=== PATIENT | female | born 1995 | race Caucasian/White ===

== ENCOUNTER 2017-03-30 15:05 | Observation (INO) | payer OTHER ==
[~2017-03-30] VITALS: Ht 172.7 cm; Wt 87.1 kg
[~2017-03-30 15:05] MED LIST: FAMO1TAB29 PO; PREN1TAB80 PO
[2017-03-30 15:55] VITALS: BP 114/77
== END 2017-03-30 17:50 | disposition home or self-care (01) ==
LOC: 4S 15:05
PROVIDERS: ADMIT Obstetrics & Gynecology; ATTEND Obstetrics & Gynecology
DX: O26.893 Other specified pregnancy related conditions, third trimester (principal); R10.30 Lower abdominal pain, unspecified; Z3A.37 37 weeks gestation of pregnancy
CPT/HCPCS: 59025; 76805; G0378

== ENCOUNTER 2017-04-02 15:10 | Inpatient (IN) | payer OTHER ==
[~2017-04-02] VITALS: Ht 162.6 cm; Wt 86.6 kg
[2017-04-02] MEDS ORDERED: RINGERS SOLUTION,LACTATED 1,000 ML IV PRN (15:36)
[2017-04-02 15:42] VITALS: BP 118/69
[2017-04-02] MEDS ORDERED: DINOPROSTONE 10 MG VAGINAL SUPPOSITORY VG ONE (15:45)
[2017-04-02] MEDS ORDERED: METOCLOPRAMIDE HCL 5 MG/ML 2 ML VIAL IVP PRN (15:45)
[2017-04-02] MEDS ORDERED: METHYLERGONOVINE MALEATE 0.2 MG/ML VIAL IM PRN (15:45)
[2017-04-02] MEDS ORDERED: CITRIC ACID/SODIUM CITRATE 30 ML SOLUTION UDCUP PO PRN (15:45)
[2017-04-02] MEDS ORDERED: LIDOCAINE HCL/PF 1% 30 ML VIAL INJ PRN (15:45)
[2017-04-02 16:18] LABS: BASOPHILS # (AUTO) 0.02 K/uL (0.00-0.20); BASOPHILS % (AUTO) 0.2 % (0.0-2.0); EOSINOPHILS # (AUTO) 0.11 K/uL (0.00-0.70); EOSINOPHILS % (AUTO) 0.92 % (1.0-6.0); HEMATOCRIT 27.8 % (36-46); HEMOGLOBIN 9.7 g/dL (12.0-16.0); LYMPHOCYTES # (AUTO) 1.7 K/uL (1.0-4.8); LYMPHOCYTES % (AUTO) 13.4 % (22.0-44.0); MEAN CORPUSCULAR HEMOGLOBIN 27.9 pg (26.0-34.0); MEAN CORPUSCULAR HGB CONC 34.7 G/dL (31.0-37.0); MEAN CORPUSCULAR VOLUME 80 fL (80-100); MONOCYTES # (AUTO) 0.8 K/uL (0.1-1.0); MONOCYTES % (AUTO) 6.3 % (2.0-9.0); NEUTROPHILS # (AUTO) 9.8 K/uL (1.8-7.7); NEUTROPHILS % (AUTO) 79.2 % (40.0-70.0); RED BLOOD CELL COUNT(AUTO) 3.46 MIL/uL (4.00-5.20); RED CELL DISTRIBUTION WIDTH 15.1 % (11.5-14.5); WHITE BLOOD COUNT (AUTO) 12.4 K/uL (4.5-11.0)
[2017-04-02] MEDS: RINGERS SOLUTION,LACTATED 1,000 ML IV SCH ×2 (16:39→18:41)
[2017-04-02] MEDS: ONDANSETRON HCL 4 MG/2 ML VIAL IVP PRN (19:31)
[2017-04-02] MEDS: FentaNYL CITRATE-PF 100 MCG/2 ML VIAL IVP PRN ×2 (21:16→21:22)
[2017-04-03] MEDS: FentaNYL CITRATE-PF 100 MCG/2 ML VIAL IVP PRN ×4 (00:07→12:49)
[2017-04-03] MEDS: OXYGEN THERAPY IH SCH ×2 (00:08→08:00)
[2017-04-03] MEDS: RINGERS SOLUTION,LACTATED 1,000 ML IV SCH ×3 (02:03→18:52)
[2017-04-03] MEDS ORDERED: BUTORPHANOL TARTRATE 2 MG/ML VIAL IVP ONE (02:20)
[2017-04-03] MEDS ORDERED: DINOPROSTONE 10 MG VAGINAL SUPPOSITORY VG ONE (05:15)
[2017-04-03] MEDS: ONDANSETRON HCL 4 MG/2 ML VIAL IVP PRN (07:03)
[2017-04-03] MEDS ORDERED: RINGERS SOLUTION,LACTATED 1,000 ML IV ONE (18:45)
[2017-04-03] MEDS ORDERED: OXYTOCIN 30 UNITS/LACT RINGERS 500 ML IV PRN (21:30)
[2017-04-04] MEDS: FentaNYL CITRATE-PF 100 MCG/2 ML VIAL IVP PRN (07:44)
[2017-04-04] MEDS ORDERED: HYDROmorphone 2 MG/ML SYRINGE IVP PRN (10:00)
[2017-04-04] MEDS ORDERED: MEPERIDINE-PF 25 MG/ML SYRINGE IVP PRN (10:00)
[2017-04-04] MEDS ORDERED: FentaNYL CITRATE-PF 100 MCG/2 ML VIAL IVP PRN (10:00)
[2017-04-04] MEDS ORDERED: LIDOCAINE HCL/PF 2% 5 ML VIAL INJ ONE (12:00)
[2017-04-04] MEDS ORDERED: FentaNYL CITRATE-PF 100 MCG/2 ML VIAL IVP ONE (12:00)
[2017-04-04] MEDS ORDERED: MIDAZOLAM HCL 2 MG/2 ML VIAL IVP ONE (12:00)
[2017-04-04] MEDS ORDERED: PROPOFOL 1% 20 ML VIAL IVP ONE (12:00)
[2017-04-04] MEDS ORDERED: LIDOCAINE HCL 2%/EPI 1:200,000/PF 10 ML VIAL ONE ×2 (14:40→15:02)
[2017-04-04] MEDS ORDERED: FentaNYL CITRATE-PF 100 MCG/2 ML VIAL ONE (16:48)
[2017-04-04] MEDS ORDERED: MISOPROSTOL 100 MCG TABLET ONE (16:58)
[2017-04-04] MEDS ORDERED: LANOLIN 7 GM OINTMENT TP PRN (17:45)
[2017-04-04] MEDS ORDERED: GLYCERIN/WITCH HAZEL LEAF 40 PADS JAR TP PRN (17:45)
[2017-04-04] MEDS ORDERED: MAGNESIUM HYDROXIDE SUSPENSION 30 ML UDCUP PO PRN (17:45)
[2017-04-04] MEDS ORDERED: OxyCODONE HCL/ACETAMINOPHEN 5-325 MG TABLET PO PRN ×2 (17:45)
[2017-04-04] MEDS ORDERED: BENZOCAINE 20%/MENTHOL 56 GM SPRAY CANISTER TP PRN (17:45)
[2017-04-04] MEDS ORDERED: OXYGEN THERAPY IH SCH (20:00)
[2017-04-04] MEDS: IBUPROFEN 600 MG TABLET PO PRN (21:07)
[2017-04-05 06:17] LABS: BASOPHILS % (AUTO) 0.3 % (0.0-2.0); EOSINOPHILS % (AUTO) 0.9 % (1.0-6.0); HEMATOCRIT 24.4 % (36-46); LYMPHOCYTES # (AUTO) 1.7 K/uL (1.0-4.8); LYMPHOCYTES % (AUTO) 15.4 % (22.0-44.0); MEAN CORPUSCULAR HEMOGLOBIN 27.5 pg (26.0-34.0); MEAN CORPUSCULAR HGB CONC 32.8 G/dL (31.0-37.0); MEAN CORPUSCULAR VOLUME 84 fL (80-100); MONOCYTES # (AUTO) 0.9 K/uL (0.1-1.0); MONOCYTES % (AUTO) 8.3 % (2.0-9.0); NEUTROPHILS # (AUTO) 8.5 K/uL (1.8-7.7); NEUTROPHILS % (AUTO) 75.1 % (40.0-70.0); RED BLOOD CELL COUNT(AUTO) 2.91 MIL/uL (4.00-5.20); RED CELL DISTRIBUTION WIDTH 15.7 % (11.5-14.5); WHITE BLOOD COUNT (AUTO) 11.3 K/uL (4.5-11.0)
[2017-04-05] MEDS: IBUPROFEN 600 MG TABLET PO PRN (08:17)
[2017-04-05] MEDS ORDERED: IBUP-2070 PO (14:28)
[2017-04-05] MEDS ORDERED: DSS100 PO (14:28)
== END 2017-04-05 16:35 | disposition home or self-care (01) | DRG 775 ==
LOC: OBSVTOIN 15:10 → 4S 15:10
PROVIDERS: ADMIT Obstetrics & Gynecology; ATTEND Obstetrics & Gynecology
PROC: 10E0XZZ Delivery of Products of Conception, External Approach (ICD-10-PCS; principal; 2017-04-04)
PROC: 0HQ9XZZ Repair Perineum Skin, External Approach (ICD-10-PCS; 2017-04-04)
PROC: 3E0S3CZ (ICD-10-PCS; 2017-04-04)
PROC: 00HU33Z Insertion of Infusion Device into Spinal Canal, Percutaneous Approach (ICD-10-PCS; 2017-04-04)
DX: O70.0 First degree perineal laceration during delivery (principal); Z37.0 Single live birth; Z3A.38 38 weeks gestation of pregnancy
CPT/HCPCS: 86850; 86900; 86901; J0595; J2250; J2405; J2590; J2704; J3010; J3490; J7120